=== PATIENT | male | born 1945 | race Caucasian/White ===

== ENCOUNTER 2018-03-11 14:50 | Emergency (ER) | payer OTHER, MEDICARE ==
--- NOTE | 2018-03-11 15:17 | EDPHY ---
H & P Stated Complaint: SOB, hypoxia for 10 days. Time Seen by Provider: 03/11/18 15:17 HPI/ROS: CHIEF COMPLAINT: Dyspnea, hypoxemia HISTORY OF PRESENT ILLNESS: The patient is referred to the ED for worsening dyspnea and hypoxemia. The patient was seen by his primary care provider last week and diagnosed with an upper respiratory infection. The patient does have a history of mild oxygen dependence at night. The patient does have a history of smoking. He does not use an inhaler. The patient was offered antibiotics last week which she did not take. The patient is chronically anticoagulated secondary to atrial fibrillation. He also has a history of CLL. REVIEW OF SYSTEMS: A comprehensive 10 point review of systems is otherwise negative aside from elements mentioned in the history of present illness. Source: Patient Exam Limitations: No limitations - Personal History Current Tetanus Diphtheria and Acellular Pertussis (TDAP): Yes Tetanus Vaccine Date: 2012 - Medical/Surgical History Hx Asthma: No Hx Chronic Respiratory Disease: Yes Hx Diabetes: No Hx Cardiac Disease: Yes Hx Renal Disease: No Hx Cirrhosis: No Hx Alcoholism: No Hx HIV/AIDS: No Hx Splenectomy or Spleen Trauma: No Other PMH: CLL,AFIB, perm pacer, copd. Pnuemonia. Anemia. - Social History Smoking Status: Former smoker - Physical Exam Exam: General Appearance: Alert, no distress Eyes: Pupils equal and round no pallor or injection ENT, Mouth: Mucous membranes moist Respiratory: Rhonchorous breath sounds bilaterally, distant breath sounds Cardiovascular: Regular rate and rhythm Gastrointestinal: Abdomen is soft and nontender, no masses, bowel sounds normal Neurological: A&O, normal motor function, normal sensory exam, normal cranial nerves Skin: Warm and dry, no rashes Musculoskeletal: Neck is supple nontender Extremities: symmetrical, full range of motion Constitutional: Initial Vital Signs Temperature (C) 37.2 C 03/11/18 15:00 Heart Rate 80 03/11/18 15:00 Respiratory Rate 20 03/11/18 15:00 Blood Pressure 122/79 H 03/11/18 15:00 O2 Sat (%) 85 L 03/11/18 15:00 O2 Delivery Mode Room Air Allergies/Adverse Reactions: midazolam HCl [From Versed] Allergy (Verified 08/05/14 09:57) Sulfa (Sulfonamide Antibiotics) Allergy (Verified 12/23/13 09:53) Other-Enter Comments Home Medications: Medication Instructions Recorded Acetaminophen/ASA/Caffeine 2 tab PO PRN PRN 12/23/13 [Excedrin Tablet (OTC)] Aspirin [Aspirin 325 mg (OTC)] 325 mg PO DAILY 12/23/13 Atorvastatin Calcium [Lipitor 10 10 mg PO DAILY 12/23/13 mg (RX)] Carvedilol [Coreg (RX)] 25 mg PO BIDMEAL 12/23/13 Herbals/Supplements -Info Only 1 tab PO AD 12/23/13 Isosorbide Mononitrate [Isosorbide 90 mg PO DAILY 12/23/13 Mononitrate ER] Losartan Potassium [Cozaar] 50 mg PO DAILY 12/23/13 Multivitamins [Tab-A-Carmen] 1 tab PO DAILY 12/23/13 Oxycodone Ir [Oxy Ir 5 mg (RX)] 5 mg PO TID@06,11,16 12/23/13 Vitamin B Complex [Vitamin B 1 tab PO DAILY 12/23/13 Complex (OTC)] Albuterol [Ventolin Hfa Inhaler] 2 puffs IH QID PRN #1 mdi 03/11/18 predniSONE [prednisone 20mg (RX)] 3 tab PO DAILY #15 tab 03/11/18 Medical Decision Making - Diagnostics Imaging Results: Imaging Impressions Chest X-Ray 03/11/18 15:17 Impression:1. No pneumonia or failure. 2. , Stable right upper lobe nodule. ED Course/Re-evaluation: The patient presents to the ED with dyspnea and hypoxemia. There is no evidence of an acute infiltrate noted on his x-ray. I feel his examination is most consistent with undiagnosed COPD. The patient will be started on albuterol and prednisone. The patient does have chronic oxygen at home. The patient was given a prescription for 60 mg of prednisone for the next 5 days. The patient has used an albuterol inhaler in the past and he is also been given a prescription for this medication. The patient was offered admission to the hospital for observation however would like to attempt outpatient management. He does have chronic oxygen at home. The patient understands return to the ED immediately for any markedly worsening symptoms or other concerns. Differential Diagnosis: Differential diagnosis considered includes asthma, bronchitis, pneumonia - Data Points Laboratory Results: Laboratory Results 03/11/18 15:15 03/11/18 15:15 03/11/18 03/11/18 15:15 15:15 WBC 24.41 10^3/uL H 10^3/uL (3.80-9.50) RBC 4.02 10^6/uL L 10^6/uL (4.40-6.38) Hgb 12.7 g/dL L g/dL (13.7-17.5) Hct 37.5 % L % (40.0-51.0) MCV 93.3 fL fL (81.5-99.8) MCH 31.6 pg pg (27.9-34.1) MCHC 33.9 g/dL g/dL (32.4-36.7) RDW 15.8 % H % (11.5-15.2) Plt Count 127 10^3/uL L 10^3/uL (150-400) MPV 11.5 fL fL (8.7-11.7) Neut % (Auto) Not Reported Lymph % (Auto) Not Reported [place] % (Auto) Not Reported Eos % (Auto) Not Reported Baso % (Auto) Not Reported Nucleat RBC Rel Count 0.0 % % (0.0-0.2) Absolute Neuts (auto) Not Reported Absolute Lymphs (auto) Not Reported Absolute Monos (auto) Not Reported Absolute Eos (auto) Not Reported Absolute Basos (auto) Not Reported Absolute Nucleated RBC 0.00 10^3/uL 10^3/uL (0-0.01) Immature Gran % Not Reported Seg Neutrophils % 27 % % Band Neutrophils % 5 % % Lymphocytes % 58 % % Monocytes % 10 % % Immature Gran # Not Reported Absolute Seg Neuts 6.59 10^/uL H 10^/uL (1.70-6.50) Absolute Band Neuts 1.22 10^3/uL H 10^3/uL (0.00-0.70) Absolute Lymphocytes 14.16 10^3/uL H 10^3/uL (1.00-3.00) Absolute Monocytes 2.44 10^3/uL H 10^3/uL (0.30-0.80) RBC/WBC/PLT Morphology NORMAL (NORMAL) Atypical Lymphocytes 2+ H Platelet Estimate DECREASED L (ADEQ) Smear Review By Pending Sodium 131 mEq/L L mEq/L (135-145) Potassium 3.4 mEq/L L mEq/L (3.5-5.2) Chloride 90 mEq/L L mEq/L (97-110) Carbon Dioxide 29 mEq/l mEq/l (22-31) Anion Gap 12 mEq/L mEq/L (8-16) BUN 25 mg/dL H mg/dL (7-23) Creatinine 1.3 mg/dL mg/dL (0.7-1.3) Estimated GFR 54 Glucose 99 mg/dL mg/dL (70-100) Calcium 8.5 mg/dL mg/dL (8.5-10.4) Troponin I < 0.012 ng/mL ng/mL (0.000-0.034) NT-Pro-B Natriuret Pep 272 pg/mL H pg/mL (0-125) Medications Given: Discontinued Medications Albuterol/Ipratropium (Duoneb) 3 ml IH EDNOW ONE Stop: 03/11/18 15:50 Last Admin: 03/11/18 16:11 Dose: 3 ml Prednisone (Prednisone) 60 mg PO EDNOW ONE Stop: 03/11/18 16:10 Last Admin: 03/11/18 16:12 Dose: 60 mg Departure - Departure Disposition: Home, Routine, Self-Care Clinical Impression: Chronic obstructive pulmonary disease with acute exacerbation, COPD (chronic obstructive pulmonary disease) Condition: Good Instructions: COPD (Chronic Obstructive Pulmonary Disease) (ED) Additional Instructions: 1. Please take prednisone as directed for next 5 days. 2. Please use albuterol inhaler up to every 2 hr as needed for cough and shortness of breath. 3. Please schedule a follow-up appointment for recheck with your primary care provider in the next week. 4. Please continue oxygen as needed at home. 5. Please return to the ED for markedly worsening symptoms or other concerns. Referrals: Raquel Alexis MD [Primary Care Provider] - As per Instructions Prescriptions: Albuterol [Ventolin Hfa Inhaler] 2 puffs IH QID PRN #1 mdi PRN Reason: for shortness of breath predniSONE [prednisone 20mg (RX)] 3 tab PO DAILY #15 tab
--- NOTE | 2018-03-11 15:22 | CPEKG ---
Heart Rate: 79 RR Interval: 759 P-R Interval: 156 QRSD Interval: 96 QT Interval: 396 QTC Interval: 455 P [place]: 49 QRS [place]: -86 T Wave [place]: 68 EKG Severity - ABNORMAL ECG - EKG Impression: ATRIAL-PACED COMPLEXES EKG Impression: PROBABLE INFERIOR INFARCT, OLD Electronically Signed By: oKdy Argueta 11-Mar-2018 17:17:04
[2018-03-11 15:43] LABS: PLATELET COUNT 127 10^3/uL (150-400)
[2018-03-11] MEDS ORDERED: IPRATROPIUM/ALBUTEROL 3 ML DEYVIAL IH ONE (15:49)
[2018-03-11] MEDS ORDERED: predniSONE 20 MG TAB PO ONE (16:09)
[2018-03-11 16:46] VITALS: BP 109/68
== END 2018-03-11 16:51 | disposition home or self-care (01) ==
DX: J44.1 Chronic obstructive pulmonary disease with (acute) exacerbation (principal); Z79.82 Long term (current) use of aspirin; Z87.891 Personal history of nicotine dependence
CPT/HCPCS: 71046; 93005; 96374; 99285; J1642; J7512

== ENCOUNTER → 2018-04-25 | Outpatient (CLI) | payer OTHER, MEDICARE | LOC: BHFA 13:00 | PROVIDERS: ATTEND Internal Medicine Cardiovascular Disease | DX: J44.9 Chronic obstructive pulmonary disease, unspecified (principal) ==

== ENCOUNTER → 2018-07-02 | Outpatient (CLI) | payer OTHER, MEDICARE | LOC: FCPNEURO 20:00 | PROVIDERS: ATTEND Psychiatry & Neurology Sleep Medicine | DX: G47.33 Obstructive sleep apnea (adult) (pediatric) (principal); G47.34 Idiopathic sleep related nonobstructive alveolar hypoventilation ==